=== PATIENT | female | born 2000 | race Caucasian/White ===

== ENCOUNTER 2025-08-08 23:11 | Emergency (ER) | payer OTHER ==
[~2025-08-08] VITALS: Ht 160 cm; Wt 112.2 kg
[2025-08-09 00:42] LABS: BASO # 0.0 10^3/uL (0.0-0.2); BASO % 0.4 % (0.0-1.0); EOS # 0.1 10^3/uL (0.0-0.5); EOS % 1.0 % (0.0-3.0); LYMPH # 1.4 10^3/uL (1.5-5.0); LYMPH % 13.7 % (24.0-44.0); MONO # 0.7 10^3/uL (0.0-0.8); MONO % 6.9 % (2.0-8.0); NEUTROPHILS # 7.9 10^3/uL (1.5-8.5); NEUTROPHILS % 77.7 % (36.0-66.0); PLATELET COUNT, AUTOMATED 221 10^3/uL (150-450)
[2025-08-09 01:12] LABS: ALT/SGPT 67 U/L (7.0-40); AST/SGOT 121 U/L (<34); CALCIUM LEVEL 9.4 MG/DL (8.5-10.1); CARBON DIOXIDE LEVEL 23 MMOL/L (20-31); CHLORIDE LEVEL 106 MMOL/L (98-107); CREATININE FOR GFR 0.86 MG/DL (0.55-1.30); GLOMERULAR FILTRATION RATE > 90.0 (>60); POTASSIUM SERUM 4.6 MMOL/L (3.5-5.1); SODIUM LEVEL 143 MMOL/L (136-145)
[2025-08-09 02:55] LABS: HCG, SERUM QUALITATIVE NEGATIVE (NEGATIVE)
[2025-08-09] MEDS: KETOROLAC 30 MG/ML 1 ML VIAL IV ONE (03:26)
[2025-08-09 06:00] VITALS: BP 114/67; TEMP 98.6
[2025-08-09 06:03] VITALS: O2SAT 98
== END 2025-08-09 06:31 | disposition home or self-care (01) ==
LOC: EDBD 23:11 → M ED 23:11
DX: K80.20 Calculus of gallbladder without cholecystitis without obstruction (principal); N28.1 Cyst of kidney, acquired; K76.0 Fatty (change of) liver, not elsewhere classified; J45.909 Unspecified asthma, uncomplicated
CPT/HCPCS: 76705; 80048; 80076; 83690; 84703; 85025; 96374; 99284; J1885